=== PATIENT | male | born 1950 | race Caucasian/White ===

== ENCOUNTER 2017-09-05 16:40 | Day surgery (SDC) | payer MEDICARE ==
[~2017-09-05] VITALS: Ht 190.5 cm; Wt 130.7 kg
[~2017-09-05 16:40] MED LIST: BACITRACIN 50,000 UNIT ONE; BUPIVACAINE/PF 0.25% ONE; BUPIVACAINE/PF 0.5% ONE; CEFAZOLIN 1,000 MG ONE; DEXAMETHASONE 4 MG/ML, 1ML ONE; EPINEPHRINE 1 MG/ML, 1ML ONE; ONDANSETRON 2MG/ML, 2ML ONE; PROPOFOL 10 MG/ML, 20ML ONE
[2017-09-05] MEDS ORDERED: TRAM50TA2 PO (16:52)
[2017-09-05] MEDS ORDERED: MELO15TA6 PO (16:52)
[2017-09-05] MEDS ORDERED: OXYC-307 PO (16:52)
[2017-09-05] MEDS ORDERED: MIDAZOLAM 1 MG/ML, 2ML ONE (17:13)
[2017-09-05] MEDS ORDERED: FENTANYL PF 100 MCG/2ML ONE (17:14)
[2017-09-05] MEDS ORDERED: LISI2.5T PO (17:18)
[2017-09-05] MEDS ORDERED: EZET1TAB35 PO (17:18)
[2017-09-05] MEDS ORDERED: ESCITALOPRAM PO (17:18)
[2017-09-05 17:26] VITALS: BP 159/88
[2017-09-05] MEDS ORDERED: LACTATED RINGERS 1,000 ML IV SCH (17:35)
[2017-09-05] MEDS ORDERED: PROMETHAZINE 25 MG/ML, 1ML IV PRN (18:30)
[2017-09-05] MEDS ORDERED: PLEASE ENTER ALLERGIES MC SCH (18:30)
[2017-09-05] MEDS ORDERED: OXYcodone 5 MG/5 ML ORAL.SOL UDC PO PRN (18:30)
[2017-09-05] MEDS ORDERED: HYDROmorphone 1 MG/ML, 1ML IV PRN (18:30)
[2017-09-05] MEDS ORDERED: ACETAMINOPHEN 325 MG TABLET PO PRN (18:30)
[2017-09-05] MEDS ORDERED: FENTANYL PF 100 MCG/2ML IV PRN (18:30)
[2017-09-05] MEDS ORDERED: MEPERIDINE/PF 50 MG/ML ONE (19:18)
[2017-09-05] MEDS ORDERED: MEPERIDINE/PF 25MG/0.5ML IVPush PRN (19:30)
[2017-09-05] MEDS ORDERED: OXYcodone 5 MG/5 ML ORAL.SOL UDC ONE (19:40)
== END 2017-09-05 23:55 | disposition home or self-care (01) ==
LOC: OUT 16:40 → 4NOR 20:20 → OUT 23:55
PROVIDERS: ATTEND Orthopaedic Surgery
DX: S52.572A Other intraarticular fracture of lower end of left radius, initial encounter for closed fracture (principal); I10 Essential (primary) hypertension; E78.5 Hyperlipidemia, unspecified; F32.9 Major depressive disorder, single episode, unspecified; K21.9 Gastro-esophageal reflux disease without esophagitis; G47.33 Obstructive sleep apnea (adult) (pediatric); E66.9 Obesity, unspecified; X58.XXXA Exposure to other specified factors, initial encounter; Y93.89 Activity, other specified; Y92.89 Other specified places as the place of occurrence of the external cause; Y99.8 Other external cause status
CPT/HCPCS: 25608; 73100; 76000; 93005; C1713; J0690; J1100; J2175; J2250; J2405; J2704; J3010; J7120; J0171; J3490